=== PATIENT | male | born 1965 | race Caucasian/White ===

== ENCOUNTER 2021-10-16 13:04 | Outpatient (REF) | payer OTHER, SELFPAY ==
--- NOTE | ~2021-10-16 | MR_ITS ---
EXAMINATION: MR BRAIN WITHOUT AND WITH CONTRAST CLINICAL INFORMATION: Multiple sclerosis. COMPARISON: Brain MRI 08/15/2014. TECHNIQUE: Multiplanar MR imaging of the brain was performed without and with contrast. A total of 10 mL Gadavist was utilized for this examination. FINDINGS: There are scattered foci of T2 FLAIR signal hyperintensity involving the supratentorial and infratentorial white matter with a predilection for the callososeptal interface and juxtacortical white matter consistent with the patient's clinical history of multiple sclerosis. Postcontrast images reveal a small developmental venous anomaly traversing the left cerebellar hemisphere. Otherwise no abnormal intraparenchymal enhancement to suggest active demyelination at the time of imaging. Questionable progression of chronic disease involving the left ventral benitez when compared to prior imaging from 08/15/2014. There is no acute territorial infarct. No pathological magnetic susceptibility artifact. Intracranial vascular flow voids are grossly maintained. There is no mastoid middle ear effusion. Paranasal sinus disease primarily affecting the ethmoid air cells. Globes and orbits are symmetric. MR/MR head/brain wo/w con IMPRESSION: There are multiple chronic parenchymal lesions involving the supratentorial and infratentorial white matter consistent with the patient's clinical history of multiple sclerosis. There is questionable progression of chronic disease involving the left ventral benitez when compared to prior imaging from 08/15/2014. Otherwise no abnormal intraparenchymal enhancement is demonstrated on postcontrast images to suggest active demyelination at the time of imaging.
== END 2021-10-16 13:05 | disposition home or self-care (01) ==
LOC: HO.MRI 13:04
PROVIDERS: PCP Pediatrics; Visit Provider Psychiatry & Neurology Neurology
DX: G35 Multiple sclerosis (principal)
CPT/HCPCS: 70553; A9585

== ENCOUNTER 2024-02-25 08:14 | Outpatient (REF) | payer BC, SELFPAY ==
--- NOTE | ~2024-02-25 | MR_ITS ---
EXAMINATION: MR BRAIN WITHOUT AND WITH CONTRAST CLINICAL INFORMATION: Multiple sclerosis. Follow-up. No current symptoms. COMPARISON: 10/16/2021, 08/15/2014. TECHNIQUE: Multiplanar, multisequence MRI of the brain was obtained before and after the intravenous administration of 9 mL Gadavist. FINDINGS: There is no diffusion restriction. There is no intracranial hemorrhage, acute infarction, mass effect, or edema. Ventricles, sulci, and cisterns are normal in size and configuration for patient age. No shift of midline. No abnormal hemosiderin deposition is identified. There are numerous punctate and linear foci of T2 signal hyperintensity within the periventricular, subcortical, hemispheric, as well as the pericallosal marginal erosions, posterior limb of the left internal capsule, left periatrial predominantly periatrial regions, the left mid benitez, left cerebellar hemisphere abutting the dentate nucleus, the bilateral inferior cerebellar peduncles, and right posterior column of the most superior spinal cord. No definite new lesions and no definite abnormally enhancing lesions are identified. Stable subcortical bilateral frontal lesions in the superior frontal gyri. Foci also noted in the splenium and genu of the corpus callosum without significant callosal volume loss. There is a DVA in the left cerebellar hemisphere, unchanged. Normal enhancement in the major cortical and dural venous sinuses. Midline structures appear normally formed. The pituitary gland appears normal. Cerebellar tonsils are appropriately located. Major flow voids are preserved within the skull base. The globes and orbital contents demonstrate no abnormalities. No optic nerve atrophy noted. Minimal mucosal disease in the ethmoid sinuses anterior and posterior. Trace mucosal disease in the inferior dependent left maxillary antrum. No air-fluid levels. Frontal sinuses clear. Mastoids and tympanic cavities are normal in signal. Extracranial soft tissues demonstrate no abnormalities. No suspicious bone marrow changes are evident. Mild arthritis in the left TM joint. Atlantoaxial joint is normal. MR/MR head/brain wo/w con IMPRESSION: 1. Stable MS plaques without evidence of new or enhancing plaque. No definite progression of disease since 10/16/2021. 2. No evidence of atrophic changes of the brain, optic nerves, or corpus callosum. 3. Mild sinus mucosal disease within the ethmoid sinuses. 4. Stable DVA in the left cerebellar hemisphere. 5. No abnormal intra or extra-axial enhancement. 6. Ancillary findings as discussed above.
[2024-02-25] MEDS: gadobutroL 10 ML VIAL IVPUSH (09:22)
== END 2024-02-25 08:15 | disposition home or self-care (01) ==
LOC: HO.MRI 08:14
PROVIDERS: PCP Pediatrics; Visit Provider Psychiatry & Neurology Neurology
DX: G35 Multiple sclerosis (principal)
CPT/HCPCS: 70553; A9585

== ENCOUNTER → 2024-02-25 08:14 | Outpatient (BNV) | payer BC, SELFPAY | PROVIDERS: PCP Pediatrics; Visit Provider Radiology Diagnostic Radiology | DX: G35 Multiple sclerosis (principal) | CPT/HCPCS: 70553 ==

== ENCOUNTER 2025-06-08 09:22 | Outpatient (AMB) | payer BC, SELFPAY ==
--- NOTE | 2025-06-08 09:24 | A.OFFVIS_ITS ---
Intake Visit Reasons: 6m Allergies No Known Allergies Allergy (Verified 06/08/25 09:29) Medication List - Last Reconciled 06/08/25 by Rekha Mcdermott CNP glatiramer (Glatopa) mg subcut HPI Comments Details: He was generally fine. Has some episodes over the last 6 months where he gets swimmy feeling in head, like a dizzy-type feeling but balance is fine, and sensation like lungs hurt or are irritated. No specific triggers identified. It can last up to few hours and may resolve after eating or with sleep. No cough, cold or flu-like illness. No difficulty breathing or SOB. Taking Glatopa injections 3x/week, episodes do not happen around injections. No medication side effects. Energy was okay. Sleep was okay. Balance was okay, no falls. Practicing yoga. Doing cold plunge of 48 degrees few times a week.?No changes in vision or flashes in vision. Intermittent tinnitus x years is unchanged. Sensitive to sound. Keeping busy with family life. Has 7 kids between him and his , ages 17-24. Previously had swimmy feeling in head without lung/chest symptom. Some stress as he has been out of work for about 6 months. Was not seen for RR-MS from 2019 - 2021. In 2021, he had some flashes in left eye off and on for 2 months on moving the eye but no decrease in vision. 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 Some stress and anxiety. Injection reactions are less with occasional bumps lasting weeks. At times feels tired by afternoon and slightly queasy in the stomach. No loss of strength. Right vision is completely back to normal. He had a sudden onset of diminution of vision in the right eye in March 2013. He did not lose his vision completely at any point. The color of objects faded. Initially he had some pain and soreness on moving the eyeball in different directions. [facility] Medical History (Updated 06/08/25 @ 09:27 by Rekha Mcdermott CNP) Multiple sclerosis Demyelinating disease Optic neuritis Review of Systems Const Denies chills, Denies daytime sleepiness, Denies difficulty sleeping, Denies fatigue, Denies fever(s), Denies frequent falls, Denies headache(s), Denies increased appetite, Denies poor appetite, Denies snoring, Denies weakness, Denies weight gain and Denies weight loss Eyes Denies loss of vision ENT Denies vertigo, Denies dizziness, Denies headache(s) and Denies neck pain Card Denies chest pain at rest, Denies chest pain with activity, Denies syncope, Denies leg edema, Denies palpitations, Denies dyspnea and Denies dyspnea on exertion Resp Denies cough, Denies dyspnea, Denies dyspnea on exertion and Denies snoring GI Denies abdominal pain, Denies constipation, Denies heartburn, Denies diarrhea and Denies nausea Denies urinary frequency, Denies urinary incontinence and Denies urinary urgency Musc Denies abnormal gait, Denies back pain, Denies myalgias, Denies arthralgias, Denies neck pain, Denies numbness and Denies tingling Neuro Denies abnormal gait, Denies vertigo, Denies dizziness, Denies syncope, Denies frequent falls, Denies headache(s), Denies lack of coordination, Denies loss of vision, Denies memory loss, Denies numbness, Denies Other visual disturbances, Denies restless legs, Denies seizure-like activity, Denies tingling, Denies paresthesias, Denies tremor(s) and Denies weakness Psych Denies anxiety, Denies depression, Denies auditory hallucinations, Denies memory loss and Denies visual hallucinations Endo Denies fatigue and Denies palpitations Physical Exam Const Other: General Appearance:? normal, in no acute distress. Heart:? S1, S2 normal, no murmurs. Lungs:? clear anteriorly and posteriorly. Musculoskeletal:? normal. Extremities:? no edema. Psych:? alert, oriented, cognitive function intact, cooperative with exam. Neuro Other: Abnormal Neurological Findings: Slight pallor of R optic disc > L. Mental Status: alert and oriented X 3. Normal attention, orientation, memory, and affect. Cranial Nerves: Pupils are equal, round, and reactive to light. External ocular muscles are intact. Visual plasencia are full, no ptosis. Face is symmetrical, no facial weakness or droop. Facial sensations are normal. Tongue protrudes in midline. Palate elevates symmetrically. Shoulder shrugging is normal Motor Examination: Normal muscle tone, bulk and strength. No atrophy or fasciculations. No drift of the extended upper extremities. DTR 2+. Plantars are flexor. Sensory Exam: Normal light touch, temperature, pinprick, vibration, and joint- position sensations. Rhomberg sign is absent. Coordination: No ataxia. No titubation. Gait Exam: Within normal limits. Cerebellar Signs: [id number] is okay. Extrapyramidal System: No tremor, rigidity with normal facial expressions. No bradykinesia. No bradyphrenia. Normal arm swing and posture. No propulsion or retropulsion. Speech: Normal. Results Reviewed Results Reviewed: Abnormal JONATHON R>L. MICHAEL was normal. MRIs from 05/24/13 and 2013 compared and reviewed: 4 white matter lesions in left occipital right perivent and supraorbital juxtacortical area.No significant change and no new or enhancing lesions. 06/15/17 MRI shows 2 new occipital lesions since scan of 2012. Will drop off MRIs from 2014 and 2016 for comparison On [employer] brand of Copaxone 10/16/21 MRI brain stable 02/25/2024 MRI brain: Stable MS plaques without evidence of new or enhancing plaque.?No definite progression of disease since 10/16/2021 Assessment & Plan Assessment & Plan (1) Multiple sclerosis: Code(s): G35 - Multiple sclerosis Category: Medical Plan: Continue Glatopa solution prefilled syringe 40mg/mL 1mL subcutaneous 3x/week at least 48 hours apart. MRI brain with and without contrast ordered. (2) Optic neuritis: Code(s): H46.9 - Unspecified optic neuritis Category: Medical Plan . Orders: Orders MR head/brain wo/w con Today G35 - Multiple sclerosis Coding Level of Care Code Est Pt Level 4 (40492) Diagnoses Multiple sclerosis G35 Optic neuritis H46.9
== END 2025-06-08 09:41 | disposition home or self-care (01) ==
LOC: HO.HSM 09:22
PROVIDERS: PCP Pediatrics; Referring Provider Pediatrics; Visit Provider Registered Nurse
DX: G35 Multiple sclerosis (principal); H46.9 Unspecified optic neuritis
CPT/HCPCS: 99214